=== PATIENT | male | born 1940 | race Caucasian/White ===

== ENCOUNTER 2024-02-29 11:45 | Observation (INO) | payer MEDICARE, OTHER ==
[2024-02-29 12:29] LABS: #Basophils 0.05 10x3/uL (0.0-0.2); %Basophils 1.1 % (0.0-1.0); %Eosinophils 2.9 % (0.0-10.0); %Lymphocytes 31.4 % (21.0-51.0); %Neutrophils 56.2 % (42.0-75.0); Hematocrit 40.3 % (42.0-52.0); Hemoglobin 13.2 g/dL (14.0-18.0); Mean Corpuscular HGB CONC 32.8 g/dL (32.0-36.0); Mean Corpuscular Volume 94.6 fL (78.0-98.0); Mean Platelet Volume 9.2 fL (7.4-10.4); Platelet Count 168 10x3/uL (130-400); RBC Distribution Width 12.8 % (11.5-14.5); Red Blood Cell (RBC) Count 4.26 mill/uL (4.70-6.10)
[2024-02-29 12:53] LABS: ALT (SGPT) 8 U/L (8-55); AST (SGOT) 13 U/L (5-34); Albumin 3.1 g/dL (3.4-4.8); Alkaline Phosphatase 80 U/L (40-110); Anion Gap 12 mmol/L (10-20); BUN (Urea Nitrogen) 14 mg/dL (8.4-25.7); Bilirubin, Total 0.7 mg/dL (0.2-1.2); Calc. Creatinine Clearance 0 mL/min (70-130); Calcium 8.7 mg/dL (7.8-10.44); Carbon Dioxide 22 mmol/L (23-31); Chloride 110 mmol/L (98-107); Estimated GFR 85; Globulin 3.1 g/dL (2.4-3.5); Glucose 122 mg/dL (83-110); Potassium 3.6 mmol/L (3.5-5.1); Protein, Total 6.2 g/dL (5.8-8.1); Sodium 140 mmol/L (136-145); Troponin I Less than 0.010 ng/mL (< 0.028)
[2024-02-29] MEDS ORDERED: Acetaminophen 325 MG TAB PO PRN (15:07)
[2024-02-29] MEDS ORDERED: Ondansetron PF 4 MG/2 ML Vial IVP PRN (15:21)
[2024-02-29] MEDS ORDERED: Aspirin Chewable 81 MG TAB ONE (15:23)
[2024-02-29 16:26] LABS: Troponin I Less than 0.010 ng/mL (< 0.028)
[2024-02-29 17:07] VITALS: BMI 26.8
[2024-02-29] MEDS: Enoxaparin 30 MG (0.3 mL) SYRINGE SC SCH (18:25)
[2024-02-29 19:27] LABS: Troponin I Less than 0.010 ng/mL (< 0.028)
[2024-02-29] MEDS: QUEtiapine 25 MG TAB PO SCH (20:06)
[2024-03-01] MEDS: traZODone HCl 50 MG TAB PO PRN (01:26)
[2024-03-01] MEDS ORDERED: Enoxaparin 30 MG (0.3 mL) SYRINGE SC SCH (09:00)
[2024-03-01] MEDS: Apixaban 5 MG TAB PO SCH (09:28)
[2024-03-01] MEDS: FLU (Fluad Triv) TS24-25 (65UP)/MF59C/PF 45 MCG/0.5 ML Syringe IM ONE (09:28)
[2024-03-01] MEDS: Polyethylene Glycol 3350 17 GM Packet PO SCH (12:37)
[2024-03-01] MEDS: Bisacodyl 5 MG TAB PO SCH (12:50)
[2024-03-01] MEDS: Haloperidol Lactate 5 MG/ML VIAL IM SCH (14:13)
[2024-03-01 16:51] VITALS: BP 164/78; TEMP 96
[2024-03-02] MEDS ORDERED: Polyethylene Glycol 3350 17 GM Packet PO SCH (09:00)
== END 2024-03-01 17:25 ==
LOC: SUATTDRO 11:45 → ERS 11:45 → 2NO 16:42
PROVIDERS: ADMIT Internal Medicine; ATTEND Internal Medicine
DX: R55 Syncope and collapse (principal); F03.90 Unspecified dementia, unspecified severity, without behavioral disturbance, psychotic disturbance, mood disturbance, and anxiety; K59.00 Constipation, unspecified; Z79.01 Long term (current) use of anticoagulants; Z79.899 Other long term (current) drug therapy
CPT/HCPCS: 71045; 74018; 80053; 82962; 83605; 84484 ×2; 85025; 93005; J1630; 36415; 36416; 96372; G0378